=== PATIENT | female | born 1965 | race Caucasian/White ===

== ENCOUNTER 2019-07-26 14:34 | Outpatient (REF) | payer BC, SELFPAY ==
--- NOTE | 2019-07-26 14:00 | PAPFT_PTH ---
PATIENT: Delmar Gee LOC: [facility] U#:[id number] AGE/SX: 54/F ROOM: RE07/26/[address]: Rubi Stoll : 1965 BED: DIS: 07/26/2019 SPEC #: [id number] RECD: 07/26/19 18:18 STATUS: MAINE REElizabeth #: [id number] BRONSON: 07/26/19 14:[address]: Rubi Stoll DEPT: [facility] Cytology RECD BY: Moira Leon ENTERED: 07/26/19 18:18 SP TYPE: PAPFT AMOL DR: Pippa Holden MD Tissues: 1 - CX/ENDOCX FOR PAP SMEARS Procedures: PAP THIN PREP/UVM Screening HPV DNA PROBE Comments: [id number]
== END 2019-07-26 14:54 ==
LOC: LBN 14:34
PROVIDERS: PCP Family Medicine; Visit Provider Obstetrics & Gynecology Gynecology
DX: Z12.4 Encounter for screening for malignant neoplasm of cervix (principal); Z11.51 Encounter for screening for human papillomavirus (HPV)
CPT/HCPCS: 88142; 87624

== ENCOUNTER 2019-07-26 14:37 | Outpatient (CLI) | payer BC, SELFPAY ==
[2019-07-26 16:07] LABS: Calculated LDL 127 mg/dL; Cholesterol 207 mg/dL (50-200); HDL Cholesterol 55 mg/dL (40-60); Triglyceride 125 mg/dL (30-150)
[2019-07-26 18:26] LABS: Hemoglobin A1C 6.2 % (4.5-6.2)
== END 2019-07-26 14:57 ==
PROVIDERS: PCP Family Medicine; Visit Provider Nurse Practitioner
DX: Z13.6 Encounter for screening for cardiovascular disorders (principal); Z13.1 Encounter for screening for diabetes mellitus; Z13.220 Encounter for screening for lipoid disorders
CPT/HCPCS: 36415; 80061; 83036

== ENCOUNTER 2019-08-01 01:16 | Outpatient (CLI) | payer BC, SELFPAY ==
--- NOTE | 2019-08-01 11:55 | DI.MAMMO_ITS ---
EXAM: MG MAMMO SCREENING CLINICAL HISTORY: screening Z12.39. TECHNIQUE: Bilateral full field digital CC and MLO mammographic images were obtained with 3D tomosyn thesis and utilizing computer aided detection (CAD). COMPARISON: There are multiple priors with the most recent from 06/14/2016. FINDINGS: Masses/Architectural Distortion: None seen. Microcalcifications: No suspicious pleomorphic-type are seen. IMPRESSION: 1. No significant interval change with no specific features of malignancy noted. 2. Unless there is more urgent need, screening mammography is recommended, as per [employer] guidelines. ACR BI-RAD Category- 1 Negative Breast Density - Category B - Scattered areas of fibroglandular density A negative radiographic report should not delay biopsy if a dominant or clinically suspicious mass is present. Up to ten percent of cancers are not identified on mammography. A negative report may reinforce clinical impression. Adenosis and dense breasts may obscure an underlying neoplasm. False positive reports average 6 to 10%.
== END 2019-08-01 01:36 ==
PROVIDERS: PCP Family Medicine; Visit Provider Nurse Practitioner
DX: Z12.31 Encounter for screening mammogram for malignant neoplasm of breast (principal)
CPT/HCPCS: 77063; 77067

== ENCOUNTER 2020-05-16 08:15 | Outpatient (CLI) | payer BC, SELFPAY ==
[2020-05-22 21:39] LABS: SARS-CoV-2 RNA Undetected (Undetected); SARS-CoV-2 Specimen Source Nasopharynx
== END 2020-05-16 08:35 ==
PROVIDERS: PCP Nurse Practitioner; Visit Provider Nurse Practitioner
DX: Z11.59 Encounter for screening for other viral diseases (principal)
CPT/HCPCS: U0003

== ENCOUNTER 2020-06-06 08:09 | Outpatient (CLI) | payer OTHER, SELFPAY ==
[2020-06-07 18:08] LABS: COVID-19 RT-PCR Result NEGATIVE (Negative)
== END 2020-06-06 08:29 ==
PROVIDERS: PCP Nurse Practitioner; Visit Provider Orthopaedic Surgery
DX: Z01.818 Encounter for other preprocedural examination (principal)
CPT/HCPCS: U0003

== ENCOUNTER 2020-06-09 09:34 | Day surgery (SDC) | payer OTHER, BC, SELFPAY ==
[2020-06-09 09:46] VITALS: BP 126/76; PULSE 72; RESP 16; TEMP 36.2; O2SAT 98
[2020-06-09] MEDS: Lactated Ringers 1,000 ML 80 ML IV (10:20)
[2020-06-09] MEDS: ceFAZolin 1 GM/50 ML BAG IVPB (10:30)
--- NOTE | 2020-06-09 11:04 | PDOC.DSDIS_ITS ---
Discharge Plan Disposition Patient Disposition: HOME Condition: Good Discharge Details Reason For Visit: Release 1st Dorsal Extensor Compartment R Attending Provider: Chad Sy Primary Care Provider: Sweetie Anne Home Meds and New Rx's Prescriptions: Continued ibuprofen 800 mg tablet 800 mg PO TID PRN (Reason: pain) Qty: 30 RF: 0 bupropion HCl (smoking deter) 150 mg tablet extended release 12 hr 150 mg PO BID Qty: 60 RF: 6 Otezla Starter 1 EACH tablets,dose pack 1 ea PO DAILY RF: 0 multivitamin [Multi-Day] 1 EACH tablet 1 ea PO DAILY RF: 0 ropinirole 0.5 mg tablet 0.5 mg PO HS Qty: 90 RF: 4 melatonin 5 mg Capsule 5 mg PO DAILY RF: 0 Skyrizi 150mg/1.66mL(75 mg/0.83 mL x2) syringe kit 150 mg SUBCUT RF: 0 Discharge Instructions Additional Instructions: Elevate R hand above heart level as much as possible overnite tonite. Keep dressings and splint dry and in place for 5 days. Remove splint AND dressings after 5 days and begin to move R wrist and thumb. After you remove dressings, may shower or bathe and get incision wet. Leave incision uncovered when it is dry and sealed. Use R hand as much as your discomfort allows. Follow up with in 2 weeks. Take ibuprofen 800 mg every 6 hours, if needed, for pain. Referrals: Chad Sy MD [ [facility] STAFF PHYSICIAN] - (f/u in 2 weeks.) Equipment/Supplies: Splint Activity:: Activity as Tolerated Remove Dressings/Wound Care:: Do Not Remove Shower/Bathe:: Cover Diet:: As Tolerated Discharge Orders Discharge Orders: Discharge Order (Routine); Ordered 06/09/20 Ordered By: Chad Sy DS: Diagnosis Discharge Diagnosis (1) De Quervain's tenosynovitis, right: Status: Acute
[2020-06-09 11:40] VITALS: BP 128/68; PULSE 72; RESP 16; TEMP 36.5; O2SAT 100
--- NOTE | 2020-06-09 14:29 | W.PM.OP ---
Date of service: 06/09/20 Time of Service: 10:00 Operative Note Operative Note DATE OF PROCEDURE: 06/09/20 PRE-OP DIAGNOSIS: DeQuervain's tenosynovitis of the first dorsal extensor compartment on the right POST-OP DIAGNOSIS: same PROCEDURE: Release of the first dorsal extensor compartment at the radial styloid. Application of short arm thumb spica splint. 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 This is failed to respond to conservative treatment including anti-inflammatory medications and splinting. Because of persistence of symptoms, surgical release of the first dorsal extensor compartment was recommended to alleviate her pain. Risk and complications of procedure explained patient detail preop. Procedure Description: He was taken the operating on a 1020 with supine operative table. IV regional anesthetic was administered to the right upper extremity. Once good anesthesia was obtained the right hand wrist and forearm were prepped and draped free in the usual sterile fashion. Incision was about 3 inches in length. Incision was carried down to the subcu. Terminal branches of the superficial radial nerve were mobilized away from the first dorsal extensor compartment. The first dorsal extensor compartment was incised longitudinally. There were 2 tendons in the first dorsal extensor compartment. 1 of the tendons was then a separate compartment. The separate compartment was excised. I carefully searched the first dorsal extensor compartment and found no further tendons. The wound was irrigated saline solution wound margins were were infiltrated with 0.5% Marcaine with epinephrine solution. The skin edges were then approximated with horizontal mattress sutures of 4-0 nylon suture material. The wound was dressed with Xeroform gauze sterile gauze 4 x 4's and ABD pad wrapped with a Kerlix bandage. A radial short arm thumb spica splint was fashioned a fiberglass cast material and applied with a 3 inch Benjamin bandage. Patient's IV regional anesthesia was reversed all complications he was discharged to the recovery room in good condition. Patient was discharged home from day surgery unit when fully recovered from her IV regional anesthesia. She is given instructions to try to elevate her right hand above heart level as much as possible overnight tonight. She is to keep her dressings and splint dry and intact for 5 days. After 5 days she can remove her splint and dressings and begin to move her right hand and wrist. After she removes her dressing she may shower and get her incision wet. She can leave the incision uncovered when is dry and sealed. She may use her right hand as much as discomfort allows. She will take ibuprofen or Tylenol for pain. Follow-up with Dr. Sy's office in 2 weeks.
== END 2020-06-09 11:52 | disposition home or self-care (01) ==
PROVIDERS: PCP Nurse Practitioner; Visit Provider Orthopaedic Surgery
PROC: (CPT 25000; principal; 2020-06-09 11:00)
DX: M65.4 Radial styloid tenosynovitis [de Quervain] (principal)
CPT/HCPCS: 25000; J0690; J1885; J2250

== ENCOUNTER 2021-01-16 03:32 | Outpatient (CLI) | payer BC, SELFPAY ==
[2021-01-17 14:19] LABS: COVID-19 RT-PCR UVMMC Result Negative (Negative)
== END 2021-01-16 03:33 | disposition home or self-care (01) ==
LOC: LBO 03:32
PROVIDERS: PCP Nurse Practitioner; Visit Provider Nurse Practitioner
DX: Z20.822 Contact with and (suspected) exposure to COVID-19 (principal)
CPT/HCPCS: U0003

== ENCOUNTER 2021-07-30 02:44 | Outpatient (CLI) | payer BC, SELFPAY ==
--- NOTE | 2021-07-30 11:29 | DI.MAMMO_ITS ---
Exam(s) MAMMO SCREENING EXAM: MAMMO SCREENING CLINICAL HISTORY: screening TECHNIQUE: Bilateral full field digital CC and MLO mammographic images were obtained with 3D tomosyn thesis and utilizing computer aided detection (CAD). COMPARISON: Available for comparison. FINDINGS: Masses/Architectural Distortion: None seen. Microcalcifications: No suspicious pleomorphic-type are seen. Skin Thickening/Nipple Retraction: None. IMPRESSION: 1. No significant interval change with no specific features of malignancy noted. 2. Unless there is more urgent need, screening mammography is recommended, as per [employer] guidelines. BI-RADS Category 1 - Negative Breast Density - Category B - Scattered areas of fibroglandular density Breast density category C or D implies that the patient has dense breast tissue. Dense breast tissue is very common and is not abnormal but dense breast tissue can make it harder to find cancer on a ma mmogram. Also, dense breast tissue may increase their breast cancer risk. This information about the result of the mammogram report was provided to the patient to raise their awareness. Use this report when you speak with the patient about their risks for breast cancer, which includes their family hist ory. At that time, you may recommend for more screening tests (Ultrasound or MRI) as they might be us eful based on their risk. A negative radiographic report should not delay biopsy if a dominant or clinically suspicious mass is present. Up to ten percent of cancers are not identified on mammography. A negative report may reinforce clinical impression. Adenosis and dense breasts may obscure an underlying neoplasm. False positive reports average 6 to 10%. Patient will receive a letter notifying them of these results.
== END 2021-07-30 03:04 ==
PROVIDERS: PCP Nurse Practitioner; Visit Provider Obstetrics & Gynecology Gynecology
DX: Z12.31 Encounter for screening mammogram for malignant neoplasm of breast (principal)
CPT/HCPCS: 77063; 77067

== ENCOUNTER 2021-09-17 02:13 | Outpatient (CLI) | payer BC, SELFPAY ==
[2021-09-17 08:02] LABS: Abs Immature Grans 0.03 10^3/uL (0.0-0.06); Absolute Basophil Count 0.08 10^3/uL (0.0-0.2); Absolute Eosinophil Count 0.24 10^3/uL (0.0-0.7); Absolute Lymphocyte Count 2.81 10^3/uL (1.2-3.4); Absolute Monocyte Count 0.67 10^3/uL (0.1-0.8); Absolute Neutrophil Count 4.83 10^3/uL (1.2-6.7); Basophils % 0.9; Eosinophils % 2.8; HCT 42.2 % (36.0-46.0); HGB 13.6 g/dL (11.2-15.7); Immature Grans % 0.3; Lymphocytes % 32.4; MCH 30.6 pg (27.0-33.0); MCHC 32.2 % (32.0-36.0); MCV 94.8 fL (80-95); MPV 10.1 fL (8.0-11.0); Monocytes % 7.7; Neutrophils % 55.9; Nucleated RBC 0 %; Platelet Count 249 10^3/uL (130-400); RBC 4.45 10^6/uL (3.93-5.22); RDW 12.9 % (11.7-14.6); RDW-SD 45.4 fL; WBC 8.66 10^3/uL (4.4-10.8)
[2021-09-17 09:14] LABS: ALT 31 U/L (14-59); AST 17 U/L (15-37); Albumin 3.7 g/dL (3.4-5.0); Alkaline Phosphatase 49 U/L (46-116); Anion Gap 6.7 mmol/L (3-11); BUN 13 mg/dL (7-18); Bilirubin, Total 0.3 mg/dL (0.2-1.0); CO2 30.3 mmol/L (21.0-32.0); CREATININE 0.8 mg/dL (0.55-1.02); Calcium 8.9 mg/dL (8.5-10.1); Chloride 108 mmol/L (98-107); Glucose 110 mg/dL (74-106); Potassium 4.6 mmol/L (3.5-5.1); Sodium 145 mmol/L (136-145); Total Protein 7.2 g/dL (6.4-8.2)
[2021-09-17 09:34] LABS: Iron 81 ug/dL (50-170); Total Iron Binding Capacity 398 ug/dL (250-450)
[2021-09-21 13:20] LABS: TB Interpretation Negative (Negative)
== END 2021-09-17 02:14 | disposition home or self-care (01) ==
LOC: LBO 02:14
PROVIDERS: PCP Nurse Practitioner; Visit Provider Dermatology
DX: G25.81 Restless legs syndrome (principal); Z79.899 Other long term (current) drug therapy
CPT/HCPCS: 36415; 80053; 83540; 83550; 85025; 86480

== ENCOUNTER 2021-10-27 11:31 | Outpatient (CLI) | payer BC, SELFPAY ==
[2021-10-27 11:52] VITALS: BP 108/75; PULSE 79; RESP 18; TEMP 36.5; O2SAT 98
== END 2021-10-27 11:32 | disposition home or self-care (01) ==
LOC: INF 11:32
PROVIDERS: PCP Nurse Practitioner; Visit Provider Family Medicine
DX: U07.1 COVID-19 (principal); R07.9 Chest pain, unspecified

== ENCOUNTER 2021-11-23 03:40 | Outpatient (CLI) | payer BC, SELFPAY ==
[2021-11-23 12:29] LABS: Hemoglobin A1C 6.1 % (<5.7)
== END 2021-11-23 03:41 | disposition home or self-care (01) ==
LOC: LBO 03:40
PROVIDERS: PCP Nurse Practitioner; Visit Provider Nurse Practitioner
DX: R73.03 Prediabetes (principal)
CPT/HCPCS: 36415; 83036

== ENCOUNTER → 2022-02-18 08:16 | Outpatient (CLI) | payer BC, SELFPAY ==
--- NOTE | 2022-02-18 05:45 | DI.RAD_ITS ---
Exam(s) XR FOOT LT COMPLETE EXAM: XR FOOT LT COMPLETE CLINICAL HISTORY: left foot pain,m79.672. TECHNIQUE: 2D digital imaging was performed. COMPARISON: CR LEFT FOOT COMPLETE from 03/04/2010 FINDINGS: 3 views There is subtle irregularity at the level navicular tuberosity is either a nondisplaced fracture or m ach shadow artifact. There does not appear to be prominent soft tissue swelling this area. Lisfranc joint unremarkable. Metatarsophalangeal joint great toe appears unremarkable as do the other MTP wolf ints. No osseous lesions. No pes planus. No inferior calcaneal spur. IMPRESSION: Possible subtle fracture of the medial aspect of the navicular at its junction with navicular tuberos ity. Correlation with site of tenderness is recommended. DATA REPOSITORY: RADIATION DOSE DELIVERED:
== END ==
PROVIDERS: PCP Nurse Practitioner; Visit Provider Emergency Medicine
DX: M79.672 Pain in left foot (principal); R93.7 Abnormal findings on diagnostic imaging of other parts of musculoskeletal system
CPT/HCPCS: 73630

== ENCOUNTER 2022-02-23 04:25 | Outpatient (CLI) | payer BC, SELFPAY ==
--- NOTE | 2022-02-23 07:15 | DI.MRI_ITS ---
Exam(s) MR LOWER EXTREMITY LT WO EXAM: MR LOWER EXTREMITY LT WO CLINICAL HISTORY: pain, injury,fx navicular bone lt foot, s92.252a. TECHNIQUE: Multiplanar multisequence MRI was performed. COMPARISON: Comparison 02/18/2022. FINDINGS: BONES/JOINTS: No evidence of fracture. There is mild marrow edema seen in the middle cuneiform but no evidence of a fracture. No joint space narrowing identified. No joint effusion identified. LIGAMENTS: The medial and lateral ankle ligaments are intact. The Lisfranc ligaments are grossly unr emarkable. There is mild edema seen between the middle and lateral cuneiform. There are intact fibe rs of the intercuneiform ligament. (Series [id number], image 14). A ligament sprain or partial tear tiffany ot be excluded. MUSCULOTENDINOUS STRUCTURES: Visualized portion of the planar fascia is unremarkable. The visualized intrinsic muscles and tendons of the foot are unremarkable. SOFT TISSUES: There is mild edema in the soft tissues medial and posterior to the medial malleolus. No focal fluid collection is seen. OTHER FINDINGS: None. IMPRESSION: 1. No evidence of a fracture. No evidence of an the navicular fracture. 2. Mild edema seen in the middle cuneiform but no evidence of a fracture. 3. Edema seen between the middle and lateral cuneiforms. A sprain or partial tear of the intercuneif orm ligament cannot be excluded. DATA REPOSITORY:
== END 2022-02-23 04:45 ==
PROVIDERS: PCP Nurse Practitioner; Visit Provider Student in an Organized Health Care Education/Training Program
DX: M79.672 Pain in left foot (principal); R60.0 Localized edema; S99.822A Other specified injuries of left foot, initial encounter
CPT/HCPCS: 73718

== ENCOUNTER 2022-03-12 09:15 | Day surgery (SDC) | payer BC, SELFPAY ==
--- NOTE | 2022-03-11 16:25 | W.COLOREPORT ---
Colonoscopy Report Date of procedure: 03/12/22 Pre-op diagnosis general: Colon cancer screening Post-op diagnosis procedure note: other (Polyp) Surgeon: Joie Ojeda Anesthesia Type: General:No Airway Pathology: other Complications: None Disposition: same day Prep: Miralax/Dulcolax Retraction Time: 10 Procedure Description: After informed consent was obtained the patient was taken to the procedure room and placed in a left decubitous position. Monitors were applied and a time out was done. The patients name, date of , procedure, allergies to medications and metal in their body was reviewed. The patient was then sedated. Once sedated and comfortable a rectal exam was done. External exam was normal. Internal exam revealed a normal sphincter tone and no palpable masses. The scope was then introduced and retrofelexed. No internal hemorrhoids were identified. The scope was then advanced to the cecum w/out difficulty. The TI and appendiceal orifice were identified. The prep was BB PS 1 in cecum/right colon/transverse colon, and a BB PS 3 in the left colon sigmoid/rectal area, for a total of 5. The scope was then slowly retracted over 10 minutes back into the rectum. There was a flat, 5 mm polyp in the rectum that is removed with a cold biopsy forceps. There are no signs of diverticula. There was stool adhered to the hernandez of the right colon and transverse colon. We did lavage the colon with 1.5 L of fluid. Most of the stool was adherent and not removable. Lesions less than 1 cm could have been missed. Patient should repeat the colonoscopy in 5 years time because of the poor prep. The scope was removed and the patient was woken up and taken back to Same day surgery in stable condition. The patient tolerated the procedure well and there were no immediate complications. Follow up: The patient should follow up in 5 years unless they develop changes in bowel habits or other new gastrointestinal complaints.
--- NOTE | 2022-03-11 16:26 | PDOC.DSDIS_ITS ---
Discharge Plan Disposition Patient Disposition: HOME Condition: Good Discharge Details Reason For Visit: Colon scope Attending Provider: Joie Ojeda Primary Care Provider: Sweetie Anne Home Meds and New Rx's Prescriptions: Discontinued bisacodyl [Dulcolax (bisacodyl)] 5 mg tablet,delayed release (DR/EC) 5 mg PO ONCE Qty: 4 0RF Rx Instructions: Take according to provider's instructions for colonoscopy prep. polyethylene glycol 3350 17 gram/dose powder 17 g PO ONCE Qty: 238 0RF Rx Instructions: To be taken as directed by prescriber's office for colonoscopy prep. No Action ibuprofen 800 mg tablet 800 mg PO TID PRN (Reason: pain) Qty: 30 0RF melatonin 5 mg capsule 10 mg PO DAILY multivitamin [Multi-Day] 1 EACH tablet 1 ea PO DAILY ropinirole 2 mg tablet 2 mg PO QHS Qty: 90 4RF Hold Instructions: Home Medication placed on hold at Doctor's office Rx Instructions: administer 1-3 hours before bedtime Skyrizi 150mg/1.66mL(75 mg/0.83 mL x2) syringe kit 150 mg SUBCUT DIRECTED Discharge Instructions Additional Instructions: DSU Colonoscopy Post- Op Instructions Instructions for Everyone who is given Anesthesia: For your safety, please do the following for the next twenty-four (24) hours: *Do Not operate a motor vehicle (car, truck, motorcycle, etc.) *Do Not drink alcoholic beverages or use any recreational drugs for the first 24 hours or while taking pain medications. The medications in your body may have a reaction that can be dangerous. *Do Not make any important decisions or sign any important papers. Findings: Polyp Follow up: My office will send a letter in 2 to 3 weeks time, detailing as to what type of polyp it was. Most likely we will want you to repeat the colonoscopy in 5 years. 1. No lifting over 20 pounds or strenuous activity for the first 24 hours after your procedure. After 24 hours there are no restrictions on your activity but you may feel fatigued for a few days. 2. After you arrive home you may have a light meal and return to your normal diet as you can tolerate it without feeling sick to your stomach. 3. You may have a bloated, gaseous feeling in your belly (abdomen) after a colonoscopy. Passing gas and belching will help. Walking or lying down on your left side with your knees flexed may relieve the discomfort. Call the office at [phone] (Office) or [phone] (Hospital) right away if you notice any of the following: a.Vomiting of blood or ?coffee ground stools?. b.Rectal bleeding 1Tbsp, blood clots or continuous bleeding. c.Severe belly (abdominal) pain. d.A hard distended belly (abdomen) and an inability to pass gas. 4. Please don?t expect to have a normal BM (bowel movement) for 2-3 days after your procedure. 5. If there are questions regarding the findings of your procedure, please contact your doctor 6. If you are unable to contact your doctor with a problem, contact the hospital at [phone]. 7. Continue all your regular medications unless directed otherwise. I understand the above instructions and have no questions. Signature of Patient or Adult Escort Name of Responsible Adult Escort Signature of Nurse Date/Time Activity:: See above Diet:: See above Discharge Orders Discharge Orders: Discharge Order (Routine); Ordered 03/11/22 Ordered By: Joie Ojeda
[2022-03-12 09:35] VITALS: BP 112/69; PULSE 68; RESP 18; TEMP 36.7; O2SAT 95
[2022-03-12] MEDS: Lactated Ringers 1,000 ML 80 ML IV (09:54)
--- NOTE | 2022-03-12 10:23 | ANES.PREOP_ITS ---
General Info Date of Service Date Performed: 03/12/22 Height: 5 ft 4 in Weight: 92 kg Body Mass Index (BMI): 34.8 Surgical Procedure: Operation Date: 03/12/22 10:20 Proposed Procedure Side Surgeon kannan Ojeda, Meds Allergies and Home Medications Allergies Allergy/AdvReac Type Severity Reaction Status Date / Time No Known Allergies Allergy Unverified 03/12/22 09:32 Home Medication Medication Instructions Recorded multivitamin (Multi-Day tablet) 1 ea PO DAILY 04/28/16 ibuprofen 800 mg tablet 800 mg PO TID PRN pain #30 tabs 12/04/19 risankizumab-rzaa 150 mg/1.66 mL 150 mg subcut DIRECTED 06/05/20 (75 mg/0.83mL x 2) subcut syringe kit (Linda) melatonin 5 mg capsule 10 mg PO DAILY 07/15/21 ropinirole 2 mg tablet 2 mg PO QHS #90 tabs 01/22/22 Current Visit Medications: Current Medications Generic Name Dose Route Start Last Admin Trade Name Melecioq PRN Reason Stop Dose Admin Hyoscyamine Sulfate 0.125 mg 03/11/22 16:25 Hyoscyamine 0.125 Mg Sl/Oral/Chew SL DIRECTED PRN Ringer's Solution 1,000 mls @ 80 mls/hr 03/12/22 06:00 03/12/22 09:54 IV 04/10/22 23:59 80 mls/hr INFUSION ARMANDO Administration IV Miscellaneous Supplies 1 each 03/12/22 06:00 Iv Access IV 04/10/22 23:59 DIRECTED ARMANDO Ondansetron HCl 4 mg 03/11/22 16:25 Ondansetron 4 Mg/2 Ml Vial IVP Q4H PRN PRN Nausea / Vomiting Sodium Chloride 0 ml 03/12/22 06:00 Normal Saline Flush 10 Ml Syr IV 04/10/22 23:59 PRN PRN Sodium Chloride 0 ml 03/12/22 06:00 Normal Saline 10 Ml Vial IJ 04/10/22 23:59 DIRECTED PRN Sterile Water 0 ml 03/12/22 06:00 Water,Injection,Sterile 10 Ml Vial IJ 04/10/22 23:59 DIRECTED PRN PFSH Active Problems Active Problems: Problem Status Onset Code Insomnia G47.00 Tobacco use Z72.0 De Quervain's tenosynovitis, right M65.4 Skin cancer C44.90 Colonoscopy planned Screening for colon cancer Z12.11 RLS (restless legs syndrome) G25.81 Prediabetes R73.03 Left foot pain M79.672 Fracture of navicular bone of left foot S92.252A Medical History Medical History (Updated 03/12/22 @ 09:30 by Jessica Love RN) Hx of appendicitis Irregular menses (10/01/14) 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 Restless leg syndrome Surgical History Surgical History (Updated 03/12/22 @ 09:32 by Jessica Love RN) Hx of appendectomy Tobacco Smoking/Tobacco Use Status: Current every day Tobacco Type: cigarettes Smoking packs per day: 0.5 Smoking cigarettes per day: 10.0 Passive smoking exposure: Yes Second hand exposure: Yes Alcohol Alcohol Intake: current Alcohol intake frequency: a few times a month Alcohol type: beer Substance Use Substance use: Never Substance use type: does not use Prental History History 5 Para Hx # Term Pregnancies 5 Multiple births Hx # Pregnancies Ectopic pregnancies AB induced Hx Number of Living Children AB spontaneous Vital Signs and Lab Results Vital Signs Most Recent Vital Signs in EMR: Most Recent Vital Signs Temp Pulse Resp BP Pulse Ox 36.7 C 68 18 112/69 95 03/12/22 09:35 03/12/22 09:35 03/12/22 09:35 03/12/22 09:35 03/12/22 09:35 Lab Results Blood Type / Crossmatch: No Data to Display Complete Blood Count: No Data to Display Complete Metabolic Panel: No Data to Display Liver Function Panel: No Data to Display Coagulation Panel: No Data to Display Cardiac Panel: No Data to Display Arterial Blood Gas: No Data to Display Venous Blood Gas: No Data to Display Pancreas Panel: No Data to Display Thyroid Panel: 2 No Data to Display Infectious Disease: No Data to Display Blood Cultures: No Data to Display Toxicology Panel: No Data to Display Anesthesia Assessment and Plan Anesthesia History Personal History: No History of Anesthesia Complications Family History: No Family History of Anesthesia Complications Exercise Tolerance Exercise Tolerance: Metabolic Equivalents>4 Pertinent Negatives Pertinent Negatives: No Symptoms of GERD, No Major Cardiovascular Symptoms or Complaints, No Major Pulmonary Symptoms or Complaints and No History of CVA/TIA Cardiac & Pulmonary Exam Cardiac Exam: Normal S1/S2 Heart Sounds Pulmonary Exam: Clear Bilateral Breath Sounds Implantable Cardiac Device Does patient have a Pacemaker or an ICD?: No Airway Exam Known Difficult Airway: No Mallampati Class: 1 Mouth Opening: Normal (> 3cm) Thyromental Distance: Greater than 3 cm Neck Range of Motion: Full ROM Neck Circumference: Normal Teeth Condition: Normal Dentition ASA Classification ASA Score: ASA 2 Emergency Case?: No NPO Status NPO Status: NPO Clears >2 hours, Solids >8 hours Anesthesia Plan Resuscitation Status: Full Code Anesthesia Technique: General Anesthesia Airway Planned: Natural Airway Monitors Used: Standard Monitors
[2022-03-12 10:24] VITALS: BMI 34.8
--- NOTE | 2022-03-12 10:51 | BOWEL_PTH ---
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
[2022-03-12 11:04] VITALS: BP 110/76; PULSE 82; RESP 17; TEMP 36.5; O2SAT 99
--- NOTE | 2022-03-12 11:04 | W.ANESPOSTOP ---
Postoperative Evaluation Date, Time and Location Date Performed: 03/12/22 Time Performed: 10:04 Patient Location: Day Surgery Unit Vital Signs Most Recent Imported Vital Signs: Most Recent Vital Signs Temp Pulse Resp BP Pulse Ox 36.7 C 68 18 112/69 95 03/12/22 09:35 03/12/22 09:35 03/12/22 09:35 03/12/22 09:35 03/12/22 09:35 Most Recent Manually Entered Vital Signs: Adult Blood Pressure: 110/76 Heart Rate: 78 Respirations: 12 Oxygen Saturation (%): 97 Temperature (C): 36.4 C Pain Score (0-10 Scale): 0 Pain Score Most Recent Pain Score: Most Recent Pain Score Pain Level 0 03/12/22 09:35 Assessment Mental Status: Awake (Alert & Oriented to Patient Baseline) Airway and Respiratory Function: Patent airway with normal (patient baseline) respiratory exam Cardiovascular Function: Hemodynamically Stable Hydration Status: Adequately Hydrated Nausea & Vomiting: No Nausea or Vomiting Pain: Pt. Denies Any Pain Peripheral Nerve Block: Patient did not receive a nerve block
[2022-03-12 11:06] VITALS: BP 110/76; PULSE 78; RESP 12; TEMPC 36.4; O2SAT 97
[2022-03-12 11:32] VITALS: BP 125/97; PULSE 76; RESP 18; TEMP 36.5; O2SAT 98
== END 2022-03-12 12:00 | disposition home or self-care (01) ==
PROVIDERS: PCP Nurse Practitioner; Visit Provider Surgery
PROC: 0DJD8ZZ Inspection of Lower Intestinal Tract, Via Natural or Artificial Opening Endoscopic (ICD-10-PCS; CPT 45378; principal; 2022-03-12 10:15)
DX: Z12.11 Encounter for screening for malignant neoplasm of colon (principal); K63.5 Polyp of colon; F17.210 Nicotine dependence, cigarettes, uncomplicated; R73.03 Prediabetes
CPT/HCPCS: 45380; 88305

== ENCOUNTER 2022-12-27 02:44 | Outpatient (CLI) | payer BC, SELFPAY ==
[2022-12-27 16:08] LABS: Anion Gap 9.3 mmol/L (3-11); BUN 17 mg/dL (7-18); CO2 29.7 mmol/L (21.0-32.0); Calcium 9.4 mg/dL (8.5-10.1); Calculated LDL 105 mg/dL (<100); Chloride 105 mmol/L (98-107); Cholesterol 205 mg/dL (<200); Estimated GFR 66.12 (mL/min/1.73m2); Ferritin 34 ng/mL (8-252); Glucose 131 mg/dL (74-106); HDL Cholesterol 46 mg/dL (40-60); Potassium 3.8 mmol/L (3.5-5.1); Sodium 144 mmol/L (136-145); Triglyceride 271 mg/dL (<150)
[2022-12-27 16:47] LABS: Hemoglobin A1C 6.5 % (<5.7)
== END 2022-12-27 02:45 | disposition home or self-care (01) ==
PROVIDERS: PCP Nurse Practitioner Family; Visit Provider Nurse Practitioner Family
DX: R73.03 Prediabetes (principal); G25.81 Restless legs syndrome
CPT/HCPCS: 36415; 80048; 80061; 82728; 83036

== ENCOUNTER 2023-01-05 02:08 | Outpatient (CLI) | payer BC, SELFPAY ==
--- NOTE | 2023-01-05 06:30 | DI.MAMMO_ITS ---
Exam(s) MAMMO SCREENING EXAM: MAMMO SCREENING CLINICAL HISTORY: screening,z12.39 TECHNIQUE: Mammograms were interpreted according to the usual protocol including computer analysis w [employer] CAD system, tomosynthesis and C-view imaging. COMPARISON: 2013 through 2020 FINDINGS: The breasts are composed of mainly fatty density , Breast Density category A. No suspicious masses or suspicious microcalcifications are seen. No skin thickening or abnormal axillary lymph nodes are seen. There has been no significant change from prior exams. IMPRESSION: BI-RADS Category 1, Negative mammogram Yearly screening mammography is recommended. Breast Density - Category A, fatty density. A negative radiographic report should not delay biopsy if a dominant or clinically suspicious mass is present. Up to ten percent of cancers are not identified on mammography. A negative report may reinforce clinical impression. Adenosis and dense breasts may obscure an underlying neoplasm. False positive reports average 6 to 10%. Patient will receive a letter notifying them of these results.
== END 2023-01-05 02:28 ==
LOC: DI 02:08
PROVIDERS: PCP Nurse Practitioner Family; Visit Provider Nurse Practitioner Family
DX: Z12.31 Encounter for screening mammogram for malignant neoplasm of breast (principal); R92.8 Other abnormal and inconclusive findings on diagnostic imaging of breast
CPT/HCPCS: 77063; 77067

== ENCOUNTER 2023-01-05 08:58 | Outpatient (CLI) | payer BC, SELFPAY ==
[2023-01-07 11:28] LABS: TB Interpretation Negative (Negative); TB1 Ag minus Nil 0.02 IU/ml
== END 2023-01-05 08:59 | disposition home or self-care (01) ==
LOC: LBO 08:59
PROVIDERS: PCP Nurse Practitioner Family; Visit Provider Dermatology
DX: Z79.899 Other long term (current) drug therapy (principal); L40.8 Other psoriasis
CPT/HCPCS: 36415; 86480

== ENCOUNTER 2023-04-28 04:19 | Outpatient (CLI) | payer BC, SELFPAY ==
[2023-04-28 10:28] LABS: Calculated LDL 118 mg/dL (<100); Cholesterol 191 mg/dL (<200); HDL Cholesterol 45 mg/dL (40-60); Triglyceride 142 mg/dL (<150)
== END 2023-04-28 04:20 | disposition home or self-care (01) ==
PROVIDERS: PCP Nurse Practitioner Family; Visit Provider Nurse Practitioner Family
DX: E11.9 Type 2 diabetes mellitus without complications (principal)
CPT/HCPCS: 36415; 80061

== ENCOUNTER → 2024-01-10 03:29 | Outpatient (CLI) | payer BC, SELFPAY | PROVIDERS: PCP Nurse Practitioner Family; Visit Provider Nurse Practitioner Family | DX: Z12.31 Encounter for screening mammogram for malignant neoplasm of breast (principal) | CPT/HCPCS: 77063; 77067 ==

== ENCOUNTER 2024-01-24 05:16 | Outpatient (CLI) | payer BC, SELFPAY ==
[2024-01-24 11:34] LABS: Abs Immature Grans 0.02 10^3/uL (0.0-0.06); Absolute Basophil Count 0.05 10^3/uL (0.0-0.2); Absolute Eosinophil Count 0.15 10^3/uL (0.0-0.7); Absolute Monocyte Count 0.44 10^3/uL (0.1-0.8); Absolute Neutrophil Count 4.02 10^3/uL (1.2-6.7); Basophils % 0.6; Eosinophils % 1.8; HGB 14.3 g/dL (11.2-15.7); Immature Grans % 0.2; Lymphocytes % 43.5; MCH 30.7 pg (27.0-33.0); MCHC 32.5 % (32.0-36.0); MCV 94 fL (80-95); MPV 9.8 fL (8.0-11.0); Monocytes % 5.3; Neutrophils % 48.6; Platelet Count 251 10^3/uL (130-400); RBC 4.66 10^6/uL (3.93-5.22); RDW 12.8 % (11.7-14.6); RDW-SD 44.3 fL; WBC 8.28 10^3/uL (4.4-10.8)
[2024-01-24 12:01] LABS: Hemoglobin A1C 6.3 % (<5.7)
[2024-01-24 12:06] LABS: ALT 23 U/L (14-59); AST 15 U/L (15-37); Alkaline Phosphatase 62 U/L (46-116); Anion Gap 7.5 mmol/L (3-11); BUN 14 mg/dL (7-18); Bilirubin, Total 0.3 mg/dL (0.2-1.0); CO2 30.5 mmol/L (21.0-32.0); Calcium 9.6 mg/dL (8.5-10.1); Calculated LDL 136 mg/dL (<100); Chloride 102 mmol/L (98-107); Cholesterol 208 mg/dL (<200); Estimated GFR 65.71 (mL/min/1.73m2); Glucose 98 mg/dL (74-106); HDL Cholesterol 50 mg/dL (40-60); Potassium 4.1 mmol/L (3.5-5.1); Sodium 140 mmol/L (136-145); TSH (W/Ref FT4) 2.25 uIU/mL (0.36-3.74); Total Protein 8.2 g/dL (6.4-8.2); Triglyceride 113 mg/dL (<150)
[2024-01-24 20:18] LABS: Hepatitis C Ab w Rflx HCV PCR Negative (Negative)
== END 2024-01-24 05:17 | disposition home or self-care (01) ==
LOC: LBO 05:16
PROVIDERS: PCP Nurse Practitioner Family; Visit Provider Nurse Practitioner Family
DX: Z00.00 Encounter for general adult medical examination without abnormal findings (principal)
CPT/HCPCS: 36415; 80053; 80061; 86803; 83036; 84443; 85025

== ENCOUNTER 2024-03-13 15:57 | Outpatient (REF) | payer BC, SELFPAY ==
--- NOTE | 2024-03-13 15:15 | PAPFT_PTH ---
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
== END 2024-03-13 15:58 | disposition home or self-care (01) ==
LOC: LBN 15:57
PROVIDERS: PCP Nurse Practitioner Family; Visit Provider Obstetrics & Gynecology Gynecology
DX: Z12.4 Encounter for screening for malignant neoplasm of cervix (principal)
CPT/HCPCS: 88142; 87624

== ENCOUNTER 2024-06-12 02:39 | Outpatient (CLI) | payer BC, SELFPAY ==
[2024-06-12 13:00] LABS: ALT 27 U/L (14-59); AST 14 U/L (15-37); Albumin 3.8 g/dL (3.4-5.0); Alkaline Phosphatase 53 U/L (46-116); Anion Gap 7.6 mmol/L (3-11); BUN 14 mg/dL (7-18); Bilirubin, Total 0.32 mg/dL (0.2-1.0); CO2 28.4 mmol/L (21.0-32.0); CREATININE 0.9 mg/dL (0.55-1.02); Calcium 9.3 mg/dL (8.5-10.1); Chloride 103 mmol/L (98-107); Glucose 97 mg/dL (74-106); Potassium 4.1 mmol/L (3.5-5.1); Sodium 139 mmol/L (136-145); Total Protein 7.7 g/dL (6.4-8.2)
[2024-06-14 11:06] LABS: TB Interpretation Negative (Negative)
== END 2024-06-12 02:40 | disposition home or self-care (01) ==
LOC: LBO 02:39
PROVIDERS: PCP Nurse Practitioner Family; Visit Provider Nurse Practitioner Family
DX: L40.9 Psoriasis, unspecified (principal)
CPT/HCPCS: 36415; 80053; 86480

== ENCOUNTER 2025-04-09 02:21 | Outpatient (CLI) | payer BC, SELFPAY ==
[2025-04-09 12:23] LABS: Abs Immature Grans 0.03 10^3/uL (0.0-0.06); Absolute Basophil Count 0.07 10^3/uL (0.0-0.2); Absolute Eosinophil Count 0.19 10^3/uL (0.0-0.7); Absolute Lymphocyte Count 3.64 10^3/uL (1.2-3.4); Absolute Monocyte Count 0.66 10^3/uL (0.1-0.8); Absolute Neutrophil Count 4.92 10^3/uL (1.2-6.7); Basophils % 0.7 %; HCT 38.6 % (36.0-46.0); HGB 12.6 g/dL (11.2-15.7); Immature Grans % 0.3 %; Lymphocytes % 38.3 %; MCHC 32.6 % (32.0-36.0); MCV 95 fL (80-95); MPV 9.9 fL (8.0-11.0); Monocytes % 6.9 %; Neutrophils % 51.8 %; Platelet Count 279 10^3/uL (130-400); RBC 4.07 10^6/uL (3.93-5.22); RDW 13.2 % (11.7-14.6); RDW-SD 45.5 fL; WBC 9.51 10^3/uL (4.4-10.8)
[2025-04-09 12:25] LABS: ALT 27 U/L (14-59); AST 17 U/L (15-37); Albumin 3.6 g/dL (3.4-5.0); Alkaline Phosphatase 55 U/L (46-116); Anion Gap 5.5 mmol/L (3-11); BUN 15 mg/dL (7-18); Bilirubin, Total 0.3 mg/dL (0.2-1.0); CO2 28.5 mmol/L (21.0-32.0); CREATININE 0.9 mg/dL (0.55-1.02); Calcium 8.9 mg/dL (8.5-10.1); Calculated LDL 115 mg/dL (<100); Chloride 104 mmol/L (98-107); Cholesterol 198 mg/dL (<200); Estimated GFR 73.64 (mL/min/1.73m2); Glucose 93 mg/dL (74-106); HDL Cholesterol 59 mg/dL (>or=50); Potassium 3.9 mmol/L (3.5-5.1); Sodium 138 mmol/L (136-145); Total Protein 7.4 g/dL (6.4-8.2); Triglyceride 123 mg/dL (<150)
[2025-04-09 12:34] LABS: Hemoglobin A1C 5.7 % (<5.7)
[2025-04-11 14:23] LABS: TB Interpretation Negative (Negative); TB1 Ag minus Nil 0.01 IU/mL; TB2 Ag minus Nil 0.03 IU/mL
== END 2025-04-09 02:22 | disposition home or self-care (01) ==
LOC: LOS 02:21
PROVIDERS: PCP Nurse Practitioner Family; Visit Provider Nurse Practitioner Family
DX: L40.9 Psoriasis, unspecified (principal); R73.03 Prediabetes
CPT/HCPCS: 36415; 80053; 80061; 83036; 85025; 86480

== ENCOUNTER 2025-05-08 03:16 | Outpatient (CLI) | payer BC, SELFPAY ==
--- NOTE | 2025-05-08 13:00 | DI.MAMMO_ITS ---
Exam(s) MAMMO SCREENING EXAM: MAMMO SCREENING CLINICAL HISTORY: screening,z12.39 TECHNIQUE: Mammograms were interpreted according to the usual protocol including computer analysis with CAD system, tomosynthesis and C-view imaging. COMPARISON: No exams were available for comparison FINDINGS: The breasts are composed of scattered fibroglandular densities, Breast Density category B. No suspicious masses or suspicious microcalcifications are seen. No skin thickening or abnormal axillary lymph nodes are seen. There has been no significant change from prior exams. IMPRESSION: BI-RADS Category 1, Negative mammogram Yearly screening mammography is recommended. Breast Density - Category B - There are scattered areas of fibroglandular density. Breast density Category C or D implies that the patient has dense breast tissue. Dense breast tissue can make it harder to find cancer on a mammogram. Dense breast tissue is also associated with an increased risk of breast cancer. This information about the result of the mammogram report was provided to the patient to raise their awareness. Use this report when you speak with the patient about their risks for breast cancer, which includes their family history. At that time, you may recommend additional screening tests (Ultrasound or MRI) as these tests may add significant information. A negative radiographic report should not delay biopsy if a dominant or clinically suspicious mass is present. Up to ten percent of cancers are not identified on mammography. A negative report may reinforce clinical impression. Adenosis and dense breasts may obscure an underlying neoplasm. False positive reports average 6 to 10%. Patient will receive a letter notifying them of these results.
== END 2025-05-08 03:36 ==
LOC: DI 03:16
PROVIDERS: PCP Nurse Practitioner Family; Visit Provider Nurse Practitioner Family
DX: Z12.31 Encounter for screening mammogram for malignant neoplasm of breast (principal); R92.323 Mammographic fibroglandular density, bilateral breasts
CPT/HCPCS: 77063; 77067